=== PATIENT | male | born 1975 | race Two or more races ===

== ENCOUNTER 2024-01-29 12:58 | Emergency (ER) | payer MEDICAID, OTHER ==
[~2024-01-29] VITALS: Ht 182.9 cm; Wt 131.3 kg
[2024-01-29] MEDS: methylPREDNISolone SOD SUCC 125 MG/2 ML VL IM ONE (14:52)
[2024-01-29] MEDS ORDERED: CEPH500C PO (15:02)
[2024-01-29] MEDS ORDERED: METH4PAK PO (15:02)
[2024-01-29] MEDS ORDERED: TRIA0.02 TOP (15:02)
[2024-01-29 15:26] VITALS: BP 113/62
[2024-01-29 15:33] VITALS: PULSE 65; RESP 18; O2SAT 97
== END 2024-01-29 15:35 | disposition home or self-care (01) ==
LOC: ER 12:58
DX: S60.561A Insect bite (nonvenomous) of right hand, initial encounter (principal); W57.XXXA Bitten or stung by nonvenomous insect and other nonvenomous arthropods, initial encounter; Y93.89 Activity, other specified; Y92.89 Other specified places as the place of occurrence of the external cause; Y99.8 Other external cause status
CPT/HCPCS: 96372; 99283; J2919